=== PATIENT | male | born 1970 | race Caucasian/White ===

== ENCOUNTER 2019-04-19 20:30 | Emergency (ER) | payer MEDICAID ==
[~2019-04-19] VITALS: Ht 172.7 cm; Wt 99.8 kg
[2019-04-19 21:20] VITALS: BP_SYST 160
[2019-04-19] MEDS ORDERED: METF1000 PO (21:28)
[2019-04-19] MEDS ORDERED: GLIP10TA21 PO (21:29)
[2019-04-19] MEDS ORDERED: LOSA25TA3 PO (21:29)
[2019-04-19] MEDS ORDERED: INSU100V11 SQ (21:29)
[2019-04-19] MEDS ORDERED: LOP600 PO (21:29)
== END 2019-04-20 01:30 | disposition left against medical advice (07) ==
LOC: SED 20:30
DX: M79.604 Pain in right leg (principal); M79.89 Other specified soft tissue disorders; Z53.21 Procedure and treatment not carried out due to patient leaving prior to being seen by health care provider